=== PATIENT | male | born 1975 | race Caucasian/White ===

== ENCOUNTER 2016-05-17 11:20 | Emergency (ER) | payer OTHER ==
[~2016-05-17] VITALS: Ht 160 cm; Wt 47.6 kg
--- NOTE | 2016-05-17 11:44 | ED HAND/WRIST INJURY COMPLAINT ---
History of Present Illness General Chief Complaint: Laceration Procedure Stated Complaint: LAC TO LEFT HAND Source: patient Exam Limitations: no limitations Vital Signs & Intake/Output Vital Signs & Intake/Output Vital Signs Date Time Temp Pulse Resp B/P Pulse O2 O2 Flow FiO2 Ox Delivery Rate 05/17 1128 97.1 62 16 155/73 99 Room Air Allergies Coded Allergies: No Known Allergies (05/17/16) Triage Note: PT CUT HIS LEFT HAND WITH A CIRCULAR SAW ABOUT 15 MINUTES AGO. BLEEDING CONTROLED IN TRIAGE Triage Nurses Notes Reviewed? yes HPI: This patient is a 40-year-old male who presents to the emergency department today for evaluation of laceration to his left hand. The patient reported that he was using a table saw and he cut himself. He reported that he is having 7 out of 10 pain in his hand. No numbness or tingling. The patient does not know when his last tetanus immunization was. The pain is constant, throbbing, and nonradiating. No palliative factors. The patient is refusing any medication for pain at this time and did not take any medication for pain prior to arrival in the emergency department. (GREGORIA BARKER PA-C) Reconcile Medications Doxycycline Hyclate (Vibramycin) 100 MG CAPSULE 1 CAP PO BID laceration (JOSEPH MAZA,OWEN) Past History Travel History Traveled to [place] past 21 day No Medical History Any Pertinent Medical History? see below for history Tetanus Vaccine: 05/17/16 Surgical History Surgical History: non-contributory Psychosocial History What is your primary language Bengali Tobacco Use: Current Daily Use Daily Tobacco Use Amount/Type: => 5 Cigarettes daily ETOH Use: occasional use Illicit Drug Use: marijuana Family History Hx Contributory? No (GREGORIA BARKER PA-C) Review of Systems Review of Systems Constitutional: Reports: no symptoms. EENTM: Reports: no symptoms. Respiratory: Reports: no symptoms. Cardiovascular: Reports: no symptoms. GI: Reports: no symptoms. Musculoskeletal: Reports: no symptoms. Skin: Reports: see HPI. Neurological/Psychological: Reports: no symptoms. All Other Systems: Reviewed and Negative (GREGORIA BARKER PA-C) Physical Exam Physical Exam Hand Left: APPROXIMATELY 4 CM IN LENGTH, IRREGULAR LACERATION TO THE PALM OF THE LEFT HAND WITH MILD AMOUNT OF ACTIVE BLEEDING, NO FOREIGN BODY APPRECIATED IN THE WOUND, AND NO SURROUNDING ERYTHEMA OR EDEMA. tENDER TO PALPATION AROUND THE WOUND SITE. 4 OUT OF 5 INFORMATION SERVICES MANAGER STRENGTH. fULL RANGE OF MOTION OF THE DIGITS. rADIAL PULSE 2+ AND STRONG. lACERATION EXTENDING INTO THE SUBCUTANEOUS TISSUE. Hand Right: normal inspection, normal range of motion Comments: Well-developed well-nourished person in mild distress HEENT: Head normocephalic, moist mucous membranes Neck: Supple, no lymphadenopathy Back: Normal gait Respiratory: No respiratory distress. Speaking in full sentences Extremities: No edema, full range of motion Neuro: Alert and oriented x3 Psych: Mood affect normal, normal memory normal judgment. Skin: Warm and dry, no rash on exposed skin (MJ KESSLER,GREGORIA) Progress Differential Diagnosis: abscess, cellulitis, tenosynovitis, SKIN LACERATION, SKIN AVULSION, SKIN TEAR, TENDON INJURY. Plan of Care: Orders Procedure Date/time Status Durable Medical Equipment 05/17 160 Active Diagnostic Imaging: Viewed by Me: Radiology Read. Discussed w/RAD: Radiology Read. Radiology Impression: PATIENT: HEATHER WEBSTER PRESENT AGE: 40 PATIENT ACCOUNT NO: [id number] : 73 LOCATION: [facility] ORDERING PHYSICIAN: GREGORIA BARKER PA-C SERVICE DATE: 05/17/16 EXAM TYPE: RAD - XRY-HAND, LEFT EXAMINATION: XR HAND, LEFT CLINICAL INFORMATION: Laceration. Rule out fracture. COMPARISON: None TECHNIQUE: AP, lateral, and oblique views of the left hand. FINDINGS: There is no evidence of acute fracture or dislocation of the left hand. Soft tissue defect is seen without radiopaque foreign body. IMPRESSION: No acute bony abnormality or radiopaque foreign body left hand identified. DICTATED BY: EDNA ESCALONA MD DATE/TIME DICTATED:05/17/161214 FLOWER CUTTER:SHYANNE DATE/TIME TRANSCRIBED:05/17/161214 CONFIDENTIAL, DO NOT COPY WITHOUT APPROPRIATE AUTHORIZATION. <Electronically signed in Other Vendor System> SIGNED BY: EDNA ESCALONA MD 05/17/16 1222 Comments: 05/17/2016 11:43:03 AM: Dr. RUIZ was at the patient's bedside for evaluation. He reported that the patient does still have good strength in his left hand. He reported that there is nothing that needs to be acutely repaired at this time aside from sutures to close the wound. This patient will be referred to a hand specialist and given a premade splint to go home with. (GREGORIA BARKER PA-C) Departure Departure Disposition: HOME OR SELF CARE Condition: Stable Clinical Impression Primary Impression: Laceration Referrals: ALLA CAMARENA MD Additional Instructions: Please keep the wound site clean and dry. You may reapply bacitracin once daily. Take antibiotic as prescribed and for the full duration. These use the splint provided to you here in the emergency department to avoid any pulling the sutures. Please follow-up in the emergency department or with your primary care physician in the next 10-14 days for suture removal. Return sooner for any signs of infection such as pus drainage from the wound site, spreading redness around the wound site, fevers, chills, or for any other concerns. Please be sure to make an appointment with the hand specialist's information has been provided to you in this packet. Return for any worsening symptoms or concerns. Departure Forms: Customer Survey General Discharge Information Prescriptions: Current Visit Scripts Doxycycline Hyclate (Vibramycin) 1 CAP PO BID #20 CAP (GREGORIA BARKER PA-C) PA/ENVIRONMENTAL HEALTH MANAGER Co-Sign Statement Statement: ED Attending supervision documentation- x I saw and evaluated the patient. I have also reviewed all the pertinent lab results and diagnostic results. I agree with the findings and the plan of care as documented in the PA's/ENVIRONMENTAL HEALTH MANAGER's documentation. [] I have reviewed the ED Record and agree with the PA's/ENVIRONMENTAL HEALTH MANAGER's documentation. [] Additions or exceptions (if any) to the PAs/ENVIRONMENTAL HEALTH MANAGER's note and plan are summarized below: [] (JOSEPH MAZA,OWEN) Procedures Laceration/Wound Repair Laceration/Wound Repair: Wound Location: upper extremity (LEFT PALM) Wound's Depth, Shape: irregular, into muscle, subcutaneous Wound Length (cm): 4 Wound Explored: irrigated extensively Irrigated w/ Saline (ccs): 800 Betadine Prep? No Anesthesia: 1% lidocaine Volume Anesthetic (ccs): 5 Wound Debrided: minimal Wound Repaired With: sutures Suture Size/Type: 3:0 Number of Sutures: 21 Layer Closure? No Sterile Dressing Applied: Yes Splint Applied? Yes By Who? by me Type of Splint Applied: PREMADE COCKUP SPLINT Sling Applied? No Tetanus Status: not up to date Progress: PA STUDENT ASSISTED IN CLOSURE OF THIS LACERATION. PATIENT TOLERATED THE PROCEDURE WELL. (MJ KESSLER,GREGORIA)
--- NOTE | 2016-05-17 12:22 | RADIOLOGY REPORT ---
EXAMINATION: XR HAND, LEFT CLINICAL INFORMATION: Laceration. Rule out fracture. COMPARISON: None TECHNIQUE: AP, lateral, and oblique views of the left hand. FINDINGS: There is no evidence of acute fracture or dislocation of the left hand. Soft tissue defect is seen without radiopaque foreign body. IMPRESSION: No acute bony abnormality or radiopaque foreign body left hand identified.
[2016-05-17] MEDS ORDERED: VIBRAMYCIN100 MG PO (16:06)
[2016-05-17 16:33] VITALS: BP 144/70
== END 2016-05-17 16:15 ==
LOC: ERH 11:20
DX: S61.412A Laceration without foreign body of left hand, initial encounter (principal); W27.0XXA Contact with workbench tool, initial encounter
CPT/HCPCS: 73130-LT; 90471; 90714